=== PATIENT | male | born 1965 | race Caucasian/White ===

== ENCOUNTER 2019-05-06 16:57 | Emergency (ER) | payer OTHER ==
[2019-05-06 19:33] VITALS: BP 151/108
== END 2019-05-06 19:34 | disposition home or self-care (01) ==
LOC: D.ER 16:57
DX: S39.012A Strain of muscle, fascia and tendon of lower back, initial encounter (principal); V43.52XA Car driver injured in collision with other type car in traffic accident, initial encounter; Y93.89 Activity, other specified; Y92.410 Unspecified street and highway as the place of occurrence of the external cause